=== PATIENT | male | born 1995 | race Caucasian/White ===

== ENCOUNTER 2022-01-18 22:48 | Emergency (ER) | payer OTHER, SELFPAY ==
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
[2022-01-18 23:05] VITALS: BP 129/82; PULSE 90; O2SAT 95
[2022-01-18 23:06] VITALS: BMI 23.8
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
[2022-01-18 23:39] VITALS: BP 138/96; PULSE 83; RESP 16; TEMP 36.7; O2SAT 98
[2022-01-19] VITALS (7 sets, daily range): BP systolic 111–123; BP diastolic 55–70; PULSE 81–89; RESP 16–22; O2SAT 94
--- NOTE | 2022-01-19 00:11 | HO.SUDE ---
Pt declined SUDE
--- NOTE | 2022-01-19 00:15 | PC.NURSE ---
patient was HOME ENERGY CONSULTANT INTO HOSPITAL ATTIRE BY THIS PCT ,PATIENT BELONGINGS IS LOCKED UP THE POD .
--- NOTE | 2022-01-19 00:57 | PC.NURSE ---
MICAELA online referral completed by this RN.
--- NOTE | 2022-01-19 01:36 | PC.NURSE ---
PATIENT IS NOT ABLE TO GIVE URINE SAMPLE AT THIS TIME ,RN AWARE .
[2022-01-19 01:46] LABS: COVID-19 Test Negative (Negative)
--- NOTE | 2022-01-19 01:53 | PC.NURSE ---
Per MD Woodward, pt making SI statements. Per technology education teacher, pt threatening to make a run for it. Per , pt medically cleared and to transfer to pod.
--- NOTE | 2022-01-19 01:59 | PC.NURSE ---
Patient just got transferred from main ED, gate unsteady/patient appears under influence, per charge nurse patient is medically cleared/[facility]N referral completed/med rec completed, unable to provide urine sample, will continue to monitor.
[2022-01-19] MEDS: diphenhydrAMINE HCL 50 MG/ML VIAL IM ×2 (02:30→13:12)
[2022-01-19] MEDS: diazePAM 10 MG/2 ML CARTRIDGE 5 MG IM ×2 (02:30→13:12)
[2022-01-19] MEDS: Haloperidol Lactate 5 MG/ML VIAL IM ×2 (02:30→13:12)
[2022-01-19] MEDS: OLANZapine 10 MG VIAL IM (02:40)
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
--- NOTE | 2022-01-19 06:39 | PC.NURSE ---
Patient S/P physical and chemical restraints, slept through the night, no distress observed/reported, [facility]N referral completed/confirmed/pending ETA, patient is not on any medication currently, pending urine sample, behavior unpredictable, will continue to monitor.
--- NOTE | 2022-01-19 07:05 | PC.NURSE ---
patient appears to remain asleep at present respirations are even and unlabored patient appears in no distress
--- NOTE | 2022-01-19 14:14 | MHC.CARE ---
BHN would like a smart sheet referral sent when patient is awake and able to be assessed.
[2022-01-19] MEDS: diazePAM 10 MG/2 ML CARTRIDGE IM (14:32)
[2022-01-19] MEDS: LORazepam 1 MG TABLET 2 MG PO (20:48)
[2022-01-19] MEDS: diphenhydrAMINE HCL 25 MG TABLET 50 MG PO (20:49)
[2022-01-19] MEDS: HaloperidoL 5 MG TABLET 10 MG PO (20:49)
--- NOTE | 2022-01-20 | ECG_ITS ---
Test Reason : MEDICAL CLEARANCE Blood Pressure : / mmHG Vent. Rate : 093 BPM Atrial Rate : 093 BPM P-R Int : 152 ms QRS Dur : 094 ms QT Int : 358 ms P-R-T Axes : 047 069 030 degrees QTc Int : 445 ms Normal sinus rhythm with sinus arrhythmia Cannot rule out Inferior infarct , age undetermined Abnormal ECG No previous ECGs available Referred By: Lubna Butler Electronically Signed By:JAI MARQUEZ MD
[2022-01-20 04:30] VITALS: BP 132/69; PULSE 98; RESP 18; TEMP 37.7; O2SAT 95
--- NOTE | 2022-01-20 05:57 | PC.NURSE ---
Patient in bed appears sleeping, slept through the night, slide out of bed once helped back to bed, patient continues asking for discharge, patient is more receptive and coherent this time, patient did yelling and screaming last evening Haldol 10 mg PO, Ativan 2 mg po, and Benadryl 50 mg po administered at 2048 as ordered with+ effect, labs, EKG, CT of head, etc pending due to patient non compliance, awaiting BHN evaluation, VSS, behavior unpredictable, will continue to monitor.
--- NOTE | 2022-01-20 07:14 | PC.NURSE ---
patient appears to remain asleep at present respirations are even and unlabored patient appears in no distress
--- NOTE | 2022-01-20 11:25 | PC.NURSE ---
Patient sleeping, appears to be in no distress. Respirations even and unlabored.
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
[2022-01-20 12:06] LABS: MANUAL DIFF FLAG NO
[2022-01-20 12:27] LABS: Basophils Percent Auto 0.3 % (0-2); Eosinophils Absolute Auto 0.1 X10*3/uL (0.0-0.4); Eosinophils Percent Auto 0.7 % (0-4); Hematocrit 43.7 % (42.0-52.0); Imm Gran Abs Auto 0.02 X10*3/uL (0.00-0.03); Imm Gran Pct Auto 0.2 % (0.0-0.4); Lymphocytes Absolute Auto 2.7 X10*3/uL (1.2-4.9); Lymphocytes Percent Auto 30.6 % (20-40); Mean Corpuscular HGB Conc 34.3 g/dl (31.0-36.0); Mean Corpuscular Hemoglobin 30.8 pg (27.0-33.0); Mean Corpuscular Volume 89.7 fL (80.0-98.0); Mean Platelet Volume 10.8 fL (9.4-12.4); Monocytes Absolute Auto 0.8 X10*3/uL (0.1-1.2); Monocytes Percent Auto 9.4 % (2-11); Neutrophils Absolute Auto 5.3 x10*3/uL (2.0-8.3); Neutrophils Percent Auto 58.8 % (45-73); Platelet Count 162 X10*3/uL (160-400); Red Blood Count 4.87 X10*6/uL (4.60-5.80); Red Cell Distribution Width 12.2 % (11.0-16.0); White Blood Count 8.9 X10*3/uL (4.8-10.8)
[2022-01-20 12:44] LABS: Appearance Urine CLEAR; Color Urine YELLOW; Glucose Urine UA NEG (NEG); Leukocyte Esterase Urine NEG (NEG); Nitrite Urine NEG (NEG); Specific Gravity - Urine 1.025 (1.005-1.025); Urine Blood NEG (NEG); Urine Ketones >=80 MG/DL (NEG); Urine Protein TRACE MG/DL (NEG-TRACE)
[2022-01-20 12:54] VITALS: BP 126/75; PULSE 100; RESP 13; TEMP 37.1; O2SAT 97
[2022-01-20 12:58] LABS: Amphetamine Screen Urine Not Detected (Not Detect); Barbiturates, Urine Not Detected (Not Detect); Benzodiazepines Screen Urine POSITIVE (Not Detect); Cannabinoid Screen Urine POSITIVE (Not Detect); Cocaine Screen Urine Not Detected (Not Detect); Fentanyl, urine POSITIVE (Not Detect); Opiate Screen Urine POSITIVE (Not Detect); Phencyclidine Screen Urine Not Detected (Not Detect)
[2022-01-20 13:09] LABS: Alanine Aminotransferase 40 U/L (0-40); Albumin Level 4.3 g/dL (3.5-5.0); Alkaline Phosphatase 46 U/L (39-117); Anion Gap 20 (12-20); Aspartate Amino Transferase 113 U/L (5-37); Bilirubin Total 2.4 mg/dL (0.0-1.0); Blood Urea Nitrogen 11 mg/dL (9-16); Calcium 9.1 mg/dL (8.4-10.2); Carbon Dioxide 21 mmol/L (22-29); Chloride 104 mmol/L (96-108); Creatinine Clr Calc Pharmacy 128.6; Estimated Glomerular Filt Rate > 60; Glucose Random 61 mg/dL (60-115); Lipase 15 U/L (8-78); Potassium 3.7 mmol/L (3.3-5.1); Sodium 141 mmol/L (135-145); Total Protein 6.8 g/dL (6.5-8.0)
--- NOTE | 2022-01-20 13:09 | PC.NURSE ---
Addendum entered by Shailesh Flood 01/20/22 13:32: Per security, patient rolled out of bed. Original Note: Patient fell in his room. ARTIFICIAL TEETH INSPECTOR Lubna Butler notified.
[2022-01-20 13:16] LABS: TSH reflex Free T4 0.69 uIU/mL (0.32-4.0)
--- NOTE | 2022-01-20 13:20 | PC.NURSE ---
Addendum entered by Shailesh Flood 01/20/22 15:10: SONDRA Butler notified about patient asking for pain medication Original Note: Patient states he is a dope head and needs to go home to use his fentanyl . Patient starting to become more agitated. SONDRA Butler notified
[2022-01-20 13:46] LABS: Troponin-I High Sensitivity 5.8 ng/L (<3.5-35.0)
--- NOTE | 2022-01-20 14:02 | MHC.CARE ---
CARE Team checked in with Pt. Pt denies current SI/HI/VH/AH. Pt does appear groggy at this time. Pt states his whole body is in pain. CARE Team notified RN
--- NOTE | 2022-01-20 14:04 | PC.NURSE ---
Pt seen this date for individual OT tx this date. Pt presents with sedated affect secondary to receiving IM chemical restraints due to aggressive behavioral outbursts this past 48 hours. Pt is receptive to conversation with this writer producer and receptive to sensory item provided. Pt is preservative with regard to wishing to discharge home. Pts nurse aware.
--- NOTE | 2022-01-20 23:31 | MHC.CARE ---
CARE Team met with pt who is requesting to leave. Pt's presentation appears to be substance use related. CARE Team spoke with environmental officer who does not feel pt need an inpatient admission. CARE Team has been following pt, he denies SI at this time with this content writer again and declined any substance use services. professional athletes coach attempted and pt declined. Pt was d/c and ED provider Rehana Murcia in agreement.
== END 2022-01-20 20:38 | disposition home or self-care (01) ==
PROVIDERS: Emergency Medicine; Social Worker; Emergency Provider Emergency Medicine Emergency Medical Services
DX: F11.14 Opioid abuse with opioid-induced mood disorder (principal); F15.14 Other stimulant abuse with stimulant-induced mood disorder; F33.1 Major depressive disorder, recurrent, moderate; Z20.822 Contact with and (suspected) exposure to COVID-19; Z71.51 Drug abuse counseling and surveillance of drug abuser; Z79.899 Other long term (current) drug therapy
CPT/HCPCS: 36415; 70450; 80053; 80307; 81003; 83690; 84443; 84484; 85025; 87635; 93005; 96372; 99285; J1200; J3230; J3360; Q0163

== ENCOUNTER 2023-07-24 15:58 | Outpatient (AMB) | payer OTHER, SELFPAY ==
--- NOTE | 2023-07-24 16:05 | A.OFFPC_ITS ---
Vital Signs 07/24/23 16:06 Height 6 ft 1 in Weight 201 lb 4 oz BMI 26.5 BP 90/60 Blood Pressure Location Lt brachial Position Sitting Pulse 55 Pulse Source Pulse Oximeter Pulse Oximetry (%) 96 Oxygen Delivery Method Room Air Intake Visit Reasons: est care Intake Note: Patient is a new patient here to establish care for Depression, Anxiety. Transferring care from [facility]([place], [place]). Medical records have been requested and have not received. Dehydrator Tender Required: No Seismograph Recorder: Not Required per policy Accompanied by: Self / Same As Patient Allergies No Known Allergies [No Known Allergies*] Allergy (Verified 07/31/23 06:55) Medication List - Last Reconciled 07/31/23 by Alex Arellano MD methadone 90 mg PO DAILY Tobacco use date assessed: 07/24/23 Dental Screening Dental Screen Date: 07/24/23 Did you have a dental visit in the last 12 months?: Yes Did you have a dental problem in the last 6 months where you did not have access to dental care?: No Was dental information given to patient?: Patient has dentist HPI est care HPI Details 28-year-old male presents to the office to establish his care here. Prior history of substance use disorder and is on methadone. Patient also gives history of anxiety and depression and currently on no medications. He is at baseline state of health and is able to function independently. Able to do all activities of daily living. [facility] Medical History (Updated 07/31/23 @ 06:59 by Alex Arellano MD) Generalized anxiety disorder Substance use disorder Surgical History History of surgery Family History Other Mental health disorder Substance use disorder Social History Housing: House Alcohol intake: never Patient Tobacco Use Status: Current everyday Tobacco user Tobacco use type: Cigarette Cigarette Packs Per Day: 0.5 Cigarettes Per Day: 10 e-Cigarette/Vaping Use: Currently Using Frequency of e-Cigarette/Vaping Use: sometimes Second Hand Smoke Exposure: Yes Substance Use Type: Marijuana Substance Use Frequency: Daily service: No Current occupational status: employed and student Current occupation: Resturant/student Cognitive needs: No Hearing needs: No Vision needs: No Questionnaire PHQ-9 Over the last 2 weeks, how often have you been bothered by any of the following problems? 1. Little interest or pleasure in doing things: several days 2. Feeling down, depressed, or hopeless: nearly every day 3. Trouble falling or staying asleep, or sleeping too much: not at all 4. Feeling tired or having little energy: several days 5. Poor appetite or overeating: not at all 6. Feeling bad about yourself - or that you are a failure or have let yourself or your family down: nearly every day 7. Trouble concentrating on things, such as reading the newspaper or watching television: several days 8. Moving or speaking so slowly that other people could have noticed. Or the opposite - being so fidgety or restless that you have been moving around a lot more than usual: not at all 9. Thoughts that you would be better off or of hurting yourself in some way: not at all Total score: 9 Depression Screening Interpretation: Positive Depression Screening Follow-up: Existing condition and Community Mental Health Worker F/U Depression Screening Done: Yes Source: Developed by Drs. Justin Robles, Valorie Faulkner, Gregory Montiel and colleagues, with an educational meg from [employer]. Thrive Questionnaire Date Thrive assessed: 07/24/23 I am a: Patient What is your living situation today?: I have a steady place to live Within the past 12 months, did the food you bought not last and you didn't have the money to get more?: Never true Within the past 12 months, did you worry whether your food would run out before you got money to buy more?: Never true Do you have trouble paying for medicines?: No Do you have trouble getting transportation to medical appointments?: No Do you have trouble paying your heating and electricity bill?: No Do you have trouble taking care of your child, family member or friend?: No Do you have trouble with day-to-day activities such as bathing, preparing meals, shopping, managing finances, etc.?: No Are you currently unemployed and looking for a job?: No Are you interested in more education?: No Currently or been in a relationship where the following occur: no concerns reported THRIVE Score: 0 AUDIT C Alcohol Use Questionnaire (AUDIT-C) 1. How often do you have a drink containing alcohol?: Never Total Score: 0 YONATAN-7 AMB Questionnaire YONATAN-7 Date YONATAN - 7 assessed: 07/24/23 Feeling nervous, anxious, or on edge: 3 = Nearly every day Not being able to stop or control worryin = Nearly every day Worrying too much about different things: 3 = Nearly every day Trouble relaxin = Nearly every day Being so restless that it is hard to sit still: 3 = Nearly every day Becoming easily annoyed or irritable: 3 = Nearly every day Feeling afraid as if something awful might happen: 3 = Nearly every day Total YONATAN-7 score (0-4 normal; 5-9 mild; 10-14 moderate; 15-21 severe): 21 Source: Developed by Drs. Justin Robles, Valorie Faulkner, Gregory Montiel and colleagues, with an educational meg from [employer]. Physical exam (Primary Care) Vital Signs: Last Vital Signs Pulse 55 07/24/23 16:06 BP 90/60 07/24/23 16:06 Pulse Ox 96 07/24/23 16:06 Oxygen Delivery Method Room Air 07/24/23 16:06 BMI result Body Mass Index 26.5 Tobacco/Smoking Status: Tobacco use Status Tobacco use date assessed 07/24/23 07/24/23 16:10 Patient Tobacco Use Status Current everyday Tobacco 07/24/23 16:18 Tobacco use type Cigarette 07/24/23 16:18 e-Cigarette/Vaping Use Currently Using 07/24/23 16:18 PHQ-9: PHQ-9 Score PHQ-9: Total score 9 07/24/23 16:18 Depression Screening Interpretation: Positive Depression Screening Follow-up: Existing condition and Community Mental Health Worker F/U Thrive Assessment: Date of Thrive Assessment Date Thrive assessed 07/24/23 07/24/23 16:10 Currently or been in a relationship where the following occur: no concerns reported Const General: cooperative and healthy appearing Nutritional Appearance: well nourished Orientation/consciousness: patient oriented x3 Limitations: no limitations HENMT Head: Yes normal to inspection Eyes General: appearance normal, both eyes and all related structures Neck Neck: Yes normal visual inspection Chest Chest palpation & inspection: normal palpation of entire chest wall Resp Effort & Inspection: normal respiratory effort Neuro General: patient oriented x3 Assessment and Plan Assessment & Plan (1) Substance use disorder: Code(s): F19.90 - Other psychoactive substance use, unspecified, uncomplicated Plan: Currently he is not using. Encouraged him to abstain. Continue the methadone. (2) Generalized anxiety disorder: Code(s): F41.1 - Generalized anxiety disorder Plan: PHQ-9 off 9 noted. A community health worker consult has been requested. Patient may require therapy. Coding Level of Care Code New Pt Level 4 (84075) Diagnoses Substance use disorder F19.90 Generalized anxiety disorder F41.1
[2023-07-24 16:06] VITALS: BP 90/60; PULSE 55; O2SAT 96; BMI 26.5
== END 2023-07-24 17:17 | disposition home or self-care (01) ==
PROVIDERS: PCP Internal Medicine; Visit Provider Internal Medicine
DX: F19.90 Other psychoactive substance use, unspecified, uncomplicated (principal); F41.1 Generalized anxiety disorder
CPT/HCPCS: 99204

== ENCOUNTER 2024-02-16 20:44 | Emergency (ER) | payer OTHER, SELFPAY ==
--- NOTE | 2024-02-16 | ECG_ITS ---
Test Reason : chest pain Blood Pressure : / mmHG Vent. Rate : 082 BPM Atrial Rate : 082 BPM P-R Int : 152 ms QRS Dur : 096 ms QT Int : 366 ms P-R-T Axes : 054 072 049 degrees QTc Int : 427 ms Normal sinus rhythm Normal ECG When compared with ECG of 20-JAN-2022 12:11, No significant change was found Referred By: Generic ED Physician Electronically Signed By:FLORECITA HARRISON
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
[2024-02-16 20:48] VITALS: BP 128/83; PULSE 116; RESP 18; TEMP 36.8; O2SAT 98; BMI 25.0
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
--- NOTE | 2024-02-16 21:11 | PC.NURSE ---
unable to do ekg upon order as pt taken to ct/xr for imaging. pt ambulatory to ed4 now. PCT at bedside for ekg.
[2024-02-16 21:20] VITALS: BP 158/84; PULSE 90; RESP 17; TEMP 37.2; O2SAT 96
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
--- NOTE | 2024-02-16 23:02 | PC.NURSE ---
RN called the patient back at number on file. RN made the patient aware of the CT findings and our inability to rule out a brain bleed vs artifact and it would be in his best interest to return for a repeat CT. The pt verbalized understanding and stated that he will think about it as he has had a long day and doesn't want to completely say no. Pt aware that if he decides to return that he can represent for follow up
== END 2024-02-16 22:00 | disposition left against medical advice (07) ==
PROVIDERS: Emergency Provider Emergency Medicine
DX: R51.9 Headache, unspecified (principal); R42 Dizziness and giddiness; Z53.21 Procedure and treatment not carried out due to patient leaving prior to being seen by health care provider
CPT/HCPCS: 70450; 71111; 72125; 73080; 93005; 99283; 99284

== ENCOUNTER 2024-02-17 03:11 | Emergency (ER) | payer OTHER, SELFPAY ==
--- NOTE | ~2024-02-17 | CT_ITS ---
EXAMINATION: CT HEAD WITHOUT CONTRAST CLINICAL INFORMATION: Prior abnormal CT. Concern for intracranial hemorrhage. COMPARISON: February 16, 2024. TECHNIQUE: Contiguous axial imaging was performed from the skull base to vertex without intravenous administration of contrast. This CT examination was performed using dose optimization techniques as appropriate, variously including the following: *Automated exposure control *Adjustment of mA and/or kV according to patient size (this includes techniques or standardized protocols for targeted exams where dose is matched to indication/reason for exam; i.e. extremities or head) *Use of iterative reconstruction technique DLP: 673 mGy-cm FINDINGS: The lateral, third and fourth ventricles are normally outlined. The cortical sulci and basal cisterns are normally as well. There is no acute territorial defect, hemorrhage or midline shift. The extra-axial spaces are unremarkable. Calvarial/Winding Department Supervisor: Intact. Maxillofacial sinuses and mastoids: Clear as visualized. CT/CT head/brain wo IV con IMPRESSION: No acute intracranial pathology. Electronically signed by: Dex Perez MD 02/17/2024 03:56 AM EDT
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
[2024-02-17 03:25] VITALS: BP 141/79; PULSE 72; RESP 18; TEMP 36.4; O2SAT 97; BMI 25.1
[2024-02-17] MEDS: Acetaminophen 325 MG TABLET 975 MG PO (03:34)
[2024-02-17 03:36] VITALS: BP 130/81; PULSE 78; RESP 20; TEMP 36.3; O2SAT 98
[2024-02-17 04:00] VITALS: BP 121/80; PULSE 70; RESP 18; TEMP 36.8; O2SAT 97
[2024-02-17 04:27] VITALS: BP 121/80; PULSE 70; RESP 18; TEMP 36.8; O2SAT 97
== END 2024-02-17 04:28 | disposition home or self-care (01) ==
PROVIDERS: Emergency Provider Emergency Medicine
DX: S06.0X0A Concussion without loss of consciousness, initial encounter (principal); S50.812A Abrasion of left forearm, initial encounter; S50.811A Abrasion of right forearm, initial encounter; Y04.8XXA Assault by other bodily force, initial encounter; F17.210 Nicotine dependence, cigarettes, uncomplicated; Y93.9 Activity, unspecified; Y92.9 Unspecified place or not applicable; Y99.9 Unspecified external cause status
CPT/HCPCS: 70450; 99284